=== PATIENT | female | born 1965 | race African-American/Black ===

== ENCOUNTER 2016-10-10 17:28 | Emergency (ER) | payer BC, OTHER ==
[~2016-10-10] VITALS: Ht 180.3 cm; Wt 77.1 kg
[2016-10-10 17:47] VITALS: BP 156/89
[2016-10-10] MEDS ORDERED: Famotidine 20 MG/ 2ML VIAL IVP ONE (18:00)
[2016-10-10] MEDS ORDERED: Sucralfate 1gm tab ORAL ONE (18:00)
--- NOTE | 2016-10-10 18:02 | Emergency Room Report ---
History of Present Illness General Chief Complaint: Vomiting Source: Patient Present Illness HPI Patient is a 51-year-old female who presented after increased epigastric pain and vomiting. The patient reported having several drinks yesterday. The patient reported having dark emesis which began earlier in the day. The patient any fever. She denied any NSAID or anticoagulant use. The patient states that she's had prior episodes of gastritis. She had previously hospital as a one-week after other episodes. Allergies: Coded Allergies: No Known Allergies (Unverified , 10/10/16) Patient History Past Medical History: see triage record Now: No Reviewed Nursing Documentation: PMH: Agreed, PSxH: Agreed Nursing Documentation-PMH Past Medical History: No Stated History Review of Systems All Other Systems: negative except mentioned in HPI Physical Exam Vital Signs Date Time Temp Pulse Resp B/P Pulse Ox O2 Delivery O2 Flow Rate FiO2 10/10/16 17:32 98.2 68 14 149/84 98 Room Air Sp02 EP Interpretation: reviewed, normal General Appearance: normal inspection, well appearing, no apparent distress, alert, GCS 15 Head: atraumatic ENT: normal ENT inspection, hearing grossly normal, normal voice Neck: normal inspection, full range of motion, supple, no bony tend Respiratory: normal inspection, lungs clear, normal breath sounds, no respiratory distress, no retraction, no wheezing Cardiovascular #1: regular rate, rhythm, no edema Gastrointestinal: normal inspection, normal bowel sounds, non tender, soft, no guarding, no hernia, tenderness - epigastric Genitourinary: no CVA tenderness Musculoskeletal: normal inspection, back normal, normal range of motion Neurologic: normal inspection, alert, responsive, speech normal Psychiatric: normal inspection, judgement/insight normal, mood/affect normal Skin: normal inspection, normal color, no rash Medical Decision Making Diagnostic Impression: Primary Impression: Gastritis Additional Impression: Upper gastrointestinal bleed ER Course Patient presented for abdominal pain. Differential diagnoses included ischemic bowel, appendicitis, perforated viscus, abdominal aortic aneurysm, inferior myocardial infarction, viral gastroenteritis Because of complexity of patient's case laboratory testing and imaging studies were ordered.Laboratory testing showed normal hemoglobin. The patient was hemodynamically stable while in emergency department. Patient was noted to have persistent vomiting. She was given IV Zofran as well as IV Pepcid. Dr. Diallo at [facility] was contacted for a transfer O physician who agreed to accept the patient. Labs Test 10/10/16 18:00 White Blood Count 8.0 K/UL (4.8-10.8) Red Blood Count 4.60 M/UL (4.20-5.40) Hemoglobin 14.1 G/DL (12.0-16.0) Hematocrit 44.7 % (37.0-47.0) Mean Corpuscular Volume 97 FL (80-99) Mean Corpuscular Hemoglobin 30.8 PG (27.0-31.0) Mean Corpuscular Hemoglobin Concent 31.6 G/DL (32.0-36.0) Red Cell Distribution Width 12.0 % (11.6-14.8) Platelet Count 284 K/UL (150-450) Mean Platelet Volume 6.4 FL (6.5-10.1) Neutrophils (%) (Auto) 80.6 % (45.0-75.0) Lymphocytes (%) (Auto) 12.5 % (20.0-45.0) Monocytes (%) (Auto) 6.0 % (1.0-10.0) Eosinophils (%) (Auto) 0.0 % (0.0-3.0) Basophils (%) (Auto) 0.9 % (0.0-2.0) Prothrombin Time 10.7 SEC (9.30-11.50) Prothromb Time International Ratio 1.1 (0.9-1.1) Activated Partial Thromboplast Time 27 SEC (23-33) Sodium Level 144 mEQ/L (135-145) Potassium Level 3.4 mEQ/L (3.4-4.9) Chloride Level 98 mEQ/L (98-107) Carbon Dioxide Level 29 mEQ/L (20-30) Anion Gap 17 (5-15) Blood Urea Nitrogen 16 mg/dL (7-23) Creatinine 0.9 mg/dL (0.5-0.9) Estimat Glomerular Filtration Rate > 60 mL/min (>60) Glucose Level 151 mg/dL (74-106) Calcium Level 10.4 mg/dL (8.6-10.2) Total Bilirubin 1.3 mg/dL (0.0-1.2) Direct Bilirubin 0.2 mg/dL (0.1-0.3) Aspartate Amino Transf (AST/SGOT) 26 U/L (5-40) Alanine Aminotransferase (ALT/SGPT) 22 U/L (3-33) Alkaline Phosphatase 112 U/L (35-104) Troponin I < 0.30 ng/mL (<=0.30) Total Protein 8.3 g/dL (6.6-8.7) Albumin 5.6 g/dL (3.5-5.2) Globulin 2.7 g/dL Albumin/Globulin Ratio 2.0 (1.0-2.7) Lipase 11 U/L (< 60) EKG Diagnostic Results Rate: normal - 61 Rhythm: NSR ST Segments: no acute changes Last Vital Signs Date Time Temp Pulse Resp B/P Pulse Ox O2 Delivery O2 Flow Rate FiO2 10/10/16 17:47 98.2 68 18 156/89 100 Room Air Status: improved Disposition: [facility] Condition: Serious John Foley Oct 10, 2016 18:02
[2016-10-10 18:17] LABS: BASOPHILS % (AUTO) 0.9 % (0.0-2.0); LYMPHOCYTES % (AUTO) 12.5 % (20.0-45.0); MEAN CORPUSCULAR HEMOGLOBIN 30.8 PG (27.0-31.0); MEAN CORPUSCULAR HGB CONC 31.6 G/DL (32.0-36.0); MEAN CORPUSCULAR VOLUME 97 FL (80-99); MEAN PLATELET VOLUME 6.4 FL (6.5-10.1); NEUTROPHILS % (AUTO) 80.6 % (45.0-75.0); PLATELET COUNT 284 K/UL (150-450)
[2016-10-10 18:25] LABS: INR 1.1 (0.9-1.1); PROTHROMBIN TIME 10.7 SEC (9.30-11.50)
[2016-10-10 18:30] LABS: ALANINE AMINOTRANSFERASE 22 U/L (3-33); ANION GAP 17 (5-15); ASPARTATE AMINO TRANSFERASE 26 U/L (5-40); CALCIUM 10.4 mg/dL (8.6-10.2); CARBON DIOXIDE 29 mEQ/L (20-30); CHLORIDE 98 mEQ/L (98-107); CREATININE 0.9 mg/dL (0.5-0.9); GLOMERULAR FILTRATION RATE > 60 mL/min (>60); HEMOLYSIS 3; LIPASE 11 U/L (< 60); POTASSIUM 3.4 mEQ/L (3.4-4.9); SODIUM 144 mEQ/L (135-145); TOTAL PROTEIN 8.3 g/dL (6.6-8.7)
[2016-10-10 18:39] LABS: TROPONIN I < 0.30 ng/mL (<=0.30)
[2016-10-10 18:50] LABS: BILIRUBIN,DIRECT 0.2 mg/dL (0.1-0.3)
[2016-10-10 19:57] VITALS: BP 132/79
[2016-10-10] MEDS ORDERED: GABAPENTIN300 MG ORAL (20:02)
[2016-10-10 22:06] VITALS: BP 139/82
[2016-10-10 23:13] VITALS: BP 157/82
[2016-10-10 23:47] VITALS: BP 157/82
--- NOTE | 2016-10-12 12:39 | Cardiology Report ---
APPROVED REPORT EKG Measurement Heart [id number] Normal sinus rhythm Minimal voltage criteria for LVH, may be normal variant Borderline ECG
== END 2016-10-10 23:49 | disposition short-term general hospital (02) ==
LOC: EMR 17:57 → EDBEDREQ 20:51 → EMR 23:49
DX: K29.70 Gastritis, unspecified, without bleeding (principal); R11.10 Vomiting, unspecified; K92.2 Gastrointestinal hemorrhage, unspecified
CPT/HCPCS: 36415; 80053; 82248; 83690; 84484; 85025; 85610; 85730; 86850; 86900; 86901; 93005; 96374; 96375; 99284; J2405; S0028